=== PATIENT | male | born 1975 | race Caucasian/White ===

== ENCOUNTER 2021-09-08 05:33 | Outpatient (RCR) | payer BC ==
[~2021-09-08] VITALS: Ht 177.8 cm; Wt 83.9 kg
[2021-09-08] MEDS ORDERED: FINA5TAB6 PO (08:18)
[2021-09-08] MEDS ORDERED: PANT40GR PO (08:18)
== END 2021-09-08 09:02 | disposition home or self-care (01) ==
LOC: PREOP 05:33 → EDSTATUS 09:00 → PREOP 09:02
PROVIDERS: ATTEND Surgery
DX: Z01.818 Encounter for other preprocedural examination (principal)

== ENCOUNTER 2021-09-16 11:32 | Day surgery (SDC) | payer BC ==
[~2021-09-16] VITALS: Ht 167.6 cm; Wt 83.9 kg
[~2021-09-16 11:32] MED LIST: FINA5TAB6 PO; PANT40GR PO
[2021-09-16] MEDS ORDERED: LACTATED RINGERS 1,000 ML IV STA (11:33)
[2021-09-16] MEDS ORDERED: LACTATED RINGERS 1,000 ML IV ONE (11:37)
[2021-09-16] MEDS ORDERED: HURRICAINE EXT TUBE (BENZOCAINE) XX PRN (11:45)
[2021-09-16 11:55] VITALS: BP 118/74
[2021-09-16] MEDS ORDERED: MIDAZOLAM 2 MG/2 ML (VERSED) VIAL ONE (13:29)
[2021-09-16] MEDS ORDERED: PROPOFOL INJECTION 50 ML IV ONE (13:29)
--- NOTE | 2021-09-16 13:52 | Progress Note-Pre Operative ---
Pre-Operative Progress Note H&P Reviewed The H&P was reviewed, patient examined and no changes noted. Date Seen by Provider: Sep 16, 2021 Time Seen by Provider: 13:51 Date H&P Reviewed: Sep 16, 2021 Time H&P Reviewed: 13:51 Pre-Operative Diagnosis: gerd, screening colonoscopy JAIDEN HOLLY DO Sep 16, 2021 13:52
[2021-09-16 14:20] VITALS: BP 118/65
--- NOTE | 2021-09-16 14:21 | Discharge Inst-Simple/Standard ---
Discharge Inst-Standard Patient Instructions/Follow Up Plan of Care/Instructions/FU: 2 weeks Chris Activity as Tolerated: Yes Discharge Diet: Regular Diet JAIDEN HOLLY DO Sep 16, 2021 14:21
--- NOTE | 2021-09-16 14:23 | Progress Note-Post Operative ---
Post-Operative Progess Note Surgeon (s)/Financial Coordinator (s) Surgeon JAIDEN HOLLY DO Financial Coordinator: na Pre-Operative Diagnosis gerd, screening colonoscopy Post-Operative Diagnosis hiatal hernia, gastric polyps, diverticulosis Procedure & Operative Findings Date of Procedure 09/16/21 Procedure Performed/Findings egd c biopsies, snare polypectomy gastric, colonoscopy Anesthesia Type per [facility] Estimated Blood Loss Estimated blood loss (mL): none Specimens/Packing Specimens Removed antrum, gastric polyp, ge JAIDEN HOLLY DO Sep 16, 2021 14:23
[2021-09-16 14:25] VITALS: BP 118/60
[2021-09-16 14:30] VITALS: BP 118/68
[2021-09-16 14:50] VITALS: BP 119/76
--- NOTE | 2021-09-16 23:03 | OPERATIVE REPORT ---
DATE OF SERVICE: 09/16/2021 PREOPERATIVE DIAGNOSES: Gastroesophageal reflux disease, screening colonoscopy. POSTOPERATIVE DIAGNOSES: Hiatal hernia, gastric polyps, diverticulosis. PROCEDURE: EGD with biopsies and snare polypectomy of gastric polyp and colonoscopy. SURGEON: Jaiden Perez DO ANESTHESIA: Per MDA. ESTIMATED BLOOD LOSS: None. COMPLICATIONS: None. SPECIMENS: Antrum, gastric polyp at GE junction. INDICATIONS: The patient is a 46-year-old male with GERD symptoms and needing screening colonoscopy. He understands risks and benefits of procedure and wished to proceed. Consent was signed in the chart. DESCRIPTION OF PROCEDURE: The patient was taken to endoscopy suite, placed in left lateral recumbent position. Timeout was performed. Scope was inserted in mouth, down the esophagus, stomach and into the duodenum without difficulty. There were no polyps, masses or ulcerations within the duodenum. Scope was slowly retracted back into the stomach where it was further insufflated. Multiple benign-appearing gastric polyps. One larger one snare polypectomy, larger polyp was performed and obtained for specimen. So in the stomach, a biopsy of the antrum was obtained for pathology and also the gastric polyp. Scope was retroflexed noting a small hiatal hernia, no other pathology. Scope was returned to its normal position, slowly withdrawn to distal esophagus, may be changes of some reflux esophagitis. Biopsy of the GE junction was obtained. Scope was slowly retracted back until completely removed, noting no other pathology. Digital rectal exam was performed. No palpable polyps, masses or ulcerations. Scope was inserted in the rectum and advanced all the way to cecum with minimal difficulty. Prep was adequate. Scope was slowly retracted back. No polyps, masses or ulcerations in the cecum, ascending, transverse, descending and sigmoid colon. Throughout the sigmoid, there was some minimal amount of diverticulosis present. Once in the rectum, scope was retroflexed noting no other pathology. Scope was returned to its normal position, slowly withdrawn until completely removed. The patient tolerated procedure well without any complications, taken to recovery room in stable condition. RECOMMENDATIONS: The patient will need repeat colonoscopy in 10 years unless family history of colon cancer, which will then be 5 years. The patient will follow up on biopsies and further recommendations pending biopsy results and symptoms. CC: Dr. Moe - requested, unable to deliver Job ID: [id number] DocumentID: [id number] Dictated Date: 09/16/2021 14:26:17 Maintenance And Repair Worker Date: 09/16/2021 23:02:49 Dictated By: JAIDEN PEREZ DO
== END 2021-09-16 14:59 | disposition home or self-care (01) ==
LOC: ENDO 11:32
PROVIDERS: ATTEND Surgery
DX: Z12.11 Encounter for screening for malignant neoplasm of colon (principal); K22.82 Esophagogastric junction polyp; K44.9 Diaphragmatic hernia without obstruction or gangrene; K57.30 Diverticulosis of large intestine without perforation or abscess without bleeding; K21.9 Gastro-esophageal reflux disease without esophagitis; K31.7 Polyp of stomach and duodenum